=== PATIENT | female | born 1945 | race Caucasian/White ===

== ENCOUNTER → 2016-09-18 | Outpatient (CLI) | payer MEDICARE | END | disposition disaster alternative care site (69) | LOC: LNHI 15:09 | DX: R55 Syncope and collapse (principal) ==

== ENCOUNTER → 2016-09-22 | Outpatient (CLI) | payer MEDICARE, OTHER | END | disposition disaster alternative care site (69) | LOC: GRAD 06:51 | DX: R55 Syncope and collapse (principal); Z53.8 Procedure and treatment not carried out for other reasons ==

== ENCOUNTER → 2016-10-01 | Outpatient (CLI) | payer MEDICARE, OTHER ==
--- NOTE | ~2016-10-01 | ESTC ---
Cardiac Perfusion Imaging Demographics Patient Name THI Oscar Gender Female Patient Number [id number] Race Visit Number [id number] Ethnicity [employer] ID Room Number Accession Number [id number] Height 66 inches Date of 1945 Weight 200 pounds Interpreting Ap Gonzalez Date of study 10/01/2016 Physician Supervising /NEETAP Chuck BEASLEY Technologist Giovanna Macedo MD Ordering Physician Chuck Cooley A bomb technician Stress ECG Reading Chuck Dawkins Nurse Otis Melton Physician A RN Medications Reviewed with Patient prior to Procedure. Procedure Procedure Type: Nuclear Stress Test:Pharmacological, Lexiscan, Cardiolite Stress Test Procedure Start time: 10/01/2016 07:50 Indications: Syncope. Risk Factors The patient risk factors include:obesity, Current/Recent(w/in 1 year) tobacco use and chronic lung disease. Conclusions Summary Perfusion Images: The overall quality of the study is good. Left ventricular cavity is noted to be normal on the stress and normal on the rest images. There is no evidence of abnormal lung activity. The right ventricle is not visualized an cannot be assessed. Impression ECG portion of lexiscan stress test is clinically negative for ischemia by diagnostic criteria. Myocardial perfusion imaging is normal. Overall left ventricular systolic function was normal without regional wall motion abnormalities. Calculated LVER is 78% and TID ratio is 1.02. There are no previous studies for comparison. Stress Protocols Resting ECG Normal sinus rhythm. Pre-stress physical exam: Patient assessed by Dr Woods prior to testing. Stress Protocol:Pharmacologic Predicted HR: 151 bpm ECG Findings No ECG changes suggestive of ischemia. Arrhythmias No rhythm abnormality. Symptoms Shortness of breath. Stress Interpretation Appropriate hemodynamic response to Lexiscan. No significant ST-T wave changes with Lexiscan. ECG portion is negative for ischemia by diagnostic criteria. Imaging Results Applied corrections - Motion correction applied High risk findings Summed scores - Summed stress score: 4 - Summed rest score: 0 - Summed difference score: 4 Stress ejection Ejection fraction:78 % EDV :68 ml ESV :15 ml Stroke volume :53 ml LV mass :112 gr Imaging Protocols Rest Stress Isotope:Tc99m Sestamibi IV Isotope: Tc99m Sestamibi IV Isotope dose:14 mCi Isotope dose:44.46 mCi Date:10/01/2016 07:10 Date:10/01/2016 08:45 Technique: SPECT Technique: Gated Supine SPECT Supine IV remains in place after procedure. Scan Time:45-60 minutes post Scan Time:45-60 minutes post injection injection Procedure Medications - Regadenoson (Lexiscan) 0.4 mg IV over 10-15 sec. I.V. 0.4 mg. Medical History Admission Data Admission date: 10/01/2016 Admission Time: 06:57 Hospital Status: Outpatient. Signatures dtt: LAKSHMI SANTOS dtd: 10/01/16 0750 Physician Self Edit
== END | disposition disaster alternative care site (69) ==
LOC: GRAD 06:57
DX: R55 Syncope and collapse (principal); E66.9 Obesity, unspecified; J98.4 Other disorders of lung; Z72.0 Tobacco use
CPT/HCPCS: A9500; J2785